=== PATIENT | male | born 1945 | race African-American/Black ===

== ENCOUNTER 2021-09-06 11:39 | Inpatient (IN) | payer OTHER ==
[~2021-09-06] VITALS: Ht 177.8 cm; Wt 93.4 kg
--- NOTE | ~2021-09-06 | EMS ---
[facility] [address] [place] [address] EMS Patient Care Report Name: CAREN JORDAN Room #: 356-P ADM IN M.R.#: [id number] Admission: 09/06/21 Attend Phys: Scooter Latif MD Discharge: Date of : 45 Report #: [id number] THIS REPORT FOR: //name// Report Transmitted: 09/10/2021 11:32 EMS Care Summary [place], [place]/[facility] Incident [id number] @ 09/06/2021 11:12 Incident Location [facility] ELPIDIO Orosco Patient CAREN A JULIAN Male, 76 Years 1945 Patient Address [address] [place], [place] [address] [address] [address] Patient History Angina,Hypertension (HTN),Kidney/Renal Failure,Coronary Artery Bypass Graft (CABG),Atrial Fibrillation,Neuropathy,Dialysis,Hyperkalemia, Patient Allergies No known allergies, Patient Medications Insulin, Famotidine, Amlodipine, Aspirin, DuoNeb, Gabapentin, Oxycodone, Melatonin, Miralax, Atorvastatin, Vitamin B12, Chief Complaint MALAISE Disposition Transported No Lights/[place] Dispatch Reason Sick Person Transported To [facility] Narrative M36 was dispatched for sick. Arrived on-scene to find 76 yo male patient [facility] [address] [place] [address] EMS Patient Care Report Name: CAREN JORDAN Room #: 356-P ADM IN M.R.#: [id number] Admission: 09/06/21 Attend Phys: Scooter Latif MD Discharge: Date of : 45 Report #: [id number] sitting in wheelchair at [facility]. Staff reported he had labs done this morning and showed critical low HBG @ 4.6 and missed dialysis. Patient's physician requested transport to [place] ED for eval and possible admission. Patient was COA x4 and in mild distress. Patient skin was pale and cool. Patient ABC's were intact. Patient was able to move all extremities with minor weakness noted. Patient was able to stand with assistance but unable to ambulate. Patient usually gets around in wheelchair. Patient complained of malaise, fatigue and general weakness. Patient denied headache, blurry vision, nausea, dizziness, syncope, jaw pain, neck pain, arm pain, chest pain, shortness of breath or abdominal pain. Patient report was obtained and assessment performed. Patient was assisted to stretcher and secured with all safety straps. Patient was loaded into ambulance and vitals assessed. Patient was transported routine. Patient was unloaded and taken to ED. Patient was moved from stretcher to bed via draw sheet method by EMS. Patient signed for transport. Patient's RN signed for receiving facility. Patient care and report turned over to RN. M36 returned to service. Initial Vitals @11:36P: 90,R: 18,BP: 104/60,Pain: 0/10,GCS: 15,SpO2: 95,Revised Trauma: 12, @11:29P: 78,R: 18,BP: 103/64,Pain: 0/10,GCS: 15,SpO2: 95,Revised Trauma: 12, Assessments @11:25MENTAL:Place Oriented,Time Oriented,Event Oriented,Person Oriented,SKIN:Pale,HEENT:Eyes: Left Pupil: 4-mm,Eyes: Right Pupil: 4-mm,Head/Face: No Abnormalities,Neck/Airway: No Abnormalities,LUNG SOUNDS:General: No Abnormalities,Left Upper: No Abnormalities,Right Upper: No Abnormalities,Left Lower: No Abnormalities,Right Lower: No Abnormalities,ABDOMEN:General: No Abnormalities,Left Upper: No Abnormalities,Right Upper: No Abnormalities,Left Lower: No Abnormalities,Right Lower: No Abnormalities,PELVIS//GI:No Abnormalities,EXTREMITIES:Left Arm: Other,Right Leg: Weakness,Left Leg: Other,Right Leg: Edema,Left Leg: Weakness,Left Leg: Edema,Right Leg: Other,Right Arm: No Abnormalities,PULSE:Radial: 2+ Normal,NEURO:Weakness Left-Sided,Weakness Right-Sided, Impression Malaise Procedures @11: ALS Assessment Response: UnchangedSucceeded @: Stretcher Response: Unchanged Timeline [facility] [address] [place] [address] EMS Patient Care Report Name: CAREN JORDAN Room #: 356-P [facility] IN M.R.#: [id number] Admission: 09/06/21 Attend Phys: Scooter Latif MD Discharge: Date of : 45 Report #: [id number] 11:10,Call Received 11:10,Dispatch Notified 11:12,Dispatched 11:13,En Route 11:23,On Scene 11:25,At Patient 11:25,ALS Assessment,Response: UnchangedSucceeded, 11:26,Stretcher,Response: Unchanged 11:29,BP: 103/64 M,PULSE: 78,RR: 18 R,SPO2: 95 Ox,ETCO2: ,BG: ,PAIN: 0,GCS: 15, 11:34,Depart Scene 11:35,At Destination 11:36,BP: 104/60 M,PULSE: 90,RR: 18 R,SPO2: 95 Ox,ETCO2: ,BG: ,PAIN: 0,GCS: 15, 11:48,Call Closed Disclaimer v1.1 Copyright 2021 [employer] This EMS Care Summary contains data elements from the applicable legal record (which may be displayed differently). It is designed to provide pertinent information for the following purposes: continuity of care, clinical quality, and state data reporting. The complete legal record is available to ED staff and administrators of the receiving hospital in [employer] Patient Tracker. All data is provided "as is."
--- NOTE | ~2021-09-06 | EMS ---
[facility] [address] [place] [address] EMS Patient Care Report Name: CAREN JORDAN Room #: 170-8 ADM IN M.R.#: [id number] Admission: 09/06/21 Attend Phys: Scooter Latif MD Discharge: Date of : 45 Report #: [id number] THIS REPORT FOR: //name// Report Transmitted: 09/07/2021 10:17 EMS Care Summary [place], [place]/[facility] Incident [id number] @ 09/06/2021 11:12 Incident Location [facility] ELPIDIO Orosco Patient CAREN A JULIAN Male, 76 Years 1945 Patient Address [address] [place], [place] [address] [address] [address] Patient History Angina,Hypertension (HTN),Kidney/Renal Failure,Coronary Artery Bypass Graft (CABG),Atrial Fibrillation,Neuropathy,Dialysis,Hyperkalemia, Patient Allergies No known allergies, Patient Medications Insulin, Famotidine, Amlodipine, Aspirin, DuoNeb, Gabapentin, Oxycodone, Melatonin, Miralax, Atorvastatin, Vitamin B12, Chief Complaint MALAISE Disposition Transported No Lights/[place] Dispatch Reason Sick Person Transported To [facility] Narrative M36 was dispatched for sick. Arrived on-scene to find 76 yo male patient [facility] [address] [place] [address] EMS Patient Care Report Name: CAREN JORDAN Room #: 170-8 ADM IN M.R.#: [id number] Admission: 09/06/21 Attend Phys: Scooter Latif MD Discharge: Date of : 45 Report #: [id number] sitting in wheelchair at [facility]. Staff reported he had labs done this morning and showed critical low HBG @ 4.6 and missed dialysis. Patient's physician requested transport to [place] ED for eval and possible admission. Patient was COA x4 and in mild distress. Patient skin was pale and cool. Patient ABC's were intact. Patient was able to move all extremities with minor weakness noted. Patient was able to stand with assistance but unable to ambulate. Patient usually gets around in wheelchair. Patient complained of malaise, fatigue and general weakness. Patient denied headache, blurry vision, nausea, dizziness, syncope, jaw pain, neck pain, arm pain, chest pain, shortness of breath or abdominal pain. Patient report was obtained and assessment performed. Patient was assisted to stretcher and secured with all safety straps. Patient was loaded into ambulance and vitals assessed. Patient was transported routine. Patient was unloaded and taken to ED. Patient was moved from stretcher to bed via draw sheet method by EMS. Patient signed for transport. Patient's RN signed for receiving facility. Patient care and report turned over to RN. M36 returned to service. Initial Vitals @11:36P: 90,R: 18,BP: 104/60,Pain: 0/10,GCS: 15,SpO2: 95,Revised Trauma: 12, @11:29P: 78,R: 18,BP: 103/64,Pain: 0/10,GCS: 15,SpO2: 95,Revised Trauma: 12, Assessments @11:25MENTAL:Person Oriented,Event Oriented,Time Oriented,Place Oriented,SKIN:Pale,HEENT:Eyes: Right Pupil: 4-mm,Eyes: Left Pupil: 4-mm,Head/Face: No Abnormalities,Neck/Airway: No Abnormalities,LUNG SOUNDS:General: No Abnormalities,Left Upper: No Abnormalities,Right Upper: No Abnormalities,Left Lower: No Abnormalities,Right Lower: No Abnormalities,ABDOMEN:General: No Abnormalities,Left Upper: No Abnormalities,Right Upper: No Abnormalities,Left Lower: No Abnormalities,Right Lower: No Abnormalities,PELVIS//GI:No Abnormalities,EXTREMITIES:Right Leg: Other,Left Leg: Edema,Left Leg: Weakness,Right Leg: Edema,Left Leg: Other,Right Leg: Weakness,Left Arm: Other,Right Arm: No Abnormalities,PULSE:Radial: 2+ Normal,NEURO:Weakness Right-Sided,Weakness Left-Sided, Impression Malaise Procedures @11: ALS Assessment Response: UnchangedSucceeded @: Stretcher Response: Unchanged Timeline 11:10,Call Received [address] [address] EMS Patient Care Report Name: CAREN JORDAN Room #: 170-8 ADM IN M.R.#: [id number] Admission: 09/06/21 Attend Phys: Scooter Latif MD Discharge: Date of : 45 Report #: [id number] 11:10,Dispatch Notified 11:12,Dispatched 11:13,En Route 11:23,On Scene 11:25,At Patient 11:25,ALS Assessment,Response: UnchangedSucceeded, 11:26,Stretcher,Response: Unchanged 11:29,BP: 103/64 M,PULSE: 78,RR: 18 R,SPO2: 95 Ox,ETCO2: ,BG: ,PAIN: 0,GCS: 15, 11:34,Depart Scene 11:35,At Destination 11:36,BP: 104/60 M,PULSE: 90,RR: 18 R,SPO2: 95 Ox,ETCO2: ,BG: ,PAIN: 0,GCS: 15, 11:48,Call Closed Disclaimer v1.1 Copyright 2021 [employer] This EMS Care Summary contains data elements from the applicable legal record (which may be displayed differently). It is designed to provide pertinent information for the following purposes: continuity of care, clinical quality, and state data reporting. The complete legal record is available to ED staff and administrators of the receiving hospital in [employer] Patient Tracker. All data is provided "as is."
[2021-09-06 11:47] VITALS: BP 113/47
[2021-09-06 12:34] LABS: ABSOLUTE NEUTROPHILS 4.5 thou/uL (1.4-8.2); EOSINOPHILS 4.3 % (0.0-3.0); LYMPHOCYTES 10.6 % (24.0-44.0); MCH 34.6 pg (26.0-34.0); MCHC 32.5 g/dL (28.0-37.0); MCV 106.5 fL (80.0-100.0); MONOCYTES 9.1 % (1.0-8.0); PLATELET COUNT 129 thou/uL (150-400); RBC 1.36 mil/uL (4.50-6.00); RDW 25.3 % (10.5-14.5)
[2021-09-06 12:36] LABS: HEMATOCRIT 14.5 % (42.0-52.0); HEMOGLOBIN 4.7 gm/dL (14.0-18.0)
[2021-09-06 12:40] LABS: ALBUMIN 2.3 g/dL (3.4-5.0); CALCIUM 8.7 mg/dL (8.5-10.1); CREATININE 8.2 mg/dL (0.7-1.3); TOTAL BILIRUBIN 0.4 mg/dL (0.2-1.0); TOTAL PROTEIN 5.7 g/dL (6.4-8.2)
[2021-09-06 13:21] LABS: ANISOCYTOSIS 1+; MACROCYTES 1+
[2021-09-06 13:44] VITALS: BP 109/49; BP 118/64; BP 119/59; BP 124/49
[2021-09-06] MEDS ORDERED: OXYCODONE HCL 55 MG PO (16:18)
[2021-09-06] MEDS ORDERED: GABAPENTIN 100100 MG PO (16:18)
[2021-09-06] MEDS ORDERED: LIPITOR 40 MG T40 M1 PO (16:18)
[2021-09-06 16:27] VITALS: BP 127/53; BP 132/54; BP 143/52; BP 144/80; BP 145/78
[2021-09-06 16:43] LABS: % SATURATION 37 % (20-39); IRON 86 ug/dL (65-175); TIBC 234 ug/dL (250-450)
[2021-09-06] MEDS ORDERED: CALCIUM ACETAT667 MG PO (17:58)
[2021-09-06] MEDS ORDERED: NORVASC5 MG PO (17:58)
[2021-09-06] MEDS ORDERED: ASA81BEC PO (18:00)
[2021-09-06] MEDS ORDERED: FAMOTIDINE 20 M20 MG PO (18:00)
[2021-09-06] MEDS ORDERED: APIDRA SUBQ (18:01)
[2021-09-06] MEDS ORDERED: MELATONIN3 M2 PO (18:02)
[2021-09-06] MEDS ORDERED: OXYCODONE HCL5 MG PO (18:02)
[2021-09-06] MEDS ORDERED: LANTUSSOLASTAR SUBQ (18:02)
[2021-09-07 07:09] LABS: HEP B SURFACE Ab(ANTI-HBS Reactive (()); HEPATITIS B SURFACE AG Negative (Negative)
[2021-09-07 08:07] LABS: HEMATOCRIT 21.5 % (42.0-52.0); HEMOGLOBIN 7.1 gm/dL (14.0-18.0); MCH 32.2 pg (26.0-34.0); MCHC 32.8 g/dL (28.0-37.0); RBC 2.19 mil/uL (4.50-6.00); RDW 23.7 % (10.5-14.5); WBC 4.8 thou/uL (4.0-11.0)
[2021-09-07 08:08] LABS: GLYCOHEMOGLOBIN (HGB A1C) 6.1 % (4.8-5.6)
[2021-09-07 08:16] LABS: MCV 98.1 fL (80.0-100.0)
[2021-09-07 08:19] LABS: CALCIUM 8.8 mg/dL (8.5-10.1)
[2021-09-07 08:21] LABS: CREATININE 4.9 mg/dL (0.7-1.3); POTASSIUM 4.3 mmol/L (3.5-5.1)
[2021-09-07 08:26] LABS: ALBUMIN 2.2 g/dL (3.4-5.0); TOTAL BILIRUBIN 0.7 mg/dL (0.2-1.0); TOTAL PROTEIN 5.4 g/dL (6.4-8.2)
[2021-09-07 13:40] VITALS: BP 117/57
[2021-09-07 16:07] VITALS: BP 138/56
--- NOTE | 2021-09-07 17:53 | NUR ---
ADMISSION NOTE: PT ADMITTED TO ROOM 356, ALERT AND ORIENTED X4, FORGETFUL AT TIMES. ON ROOM AIR, NO SIGNS OF DISTRESS NOTED. COMPLAINS OF PAIN OF THE BILATERAL LOWER EXTREMITY FROM SCATTERED BLISTERS AND WOUND ON BOTH LEGS. PT HAD A BYPASS SURGERY COUPLE WEEKS AGO AND THEY WENT THROUGH THE LEFT LEG. PT HAS EFE ON HIS LEFT LEFT LEG FROM THE SURGERY. WOUND CARE COMPLETED AND DRESSING CHANGE DONE. ASSESSMENT AND ADMISSION COMEPLETED. CONSENTS SIGNED BY PT. IS ANURIC DUE TO ESRD. ORIENTED TO THE ROOM. FALL PRECAUTIONS IN PLACE. SON AND DTR HERE AND UPDATED ABOUT PT CARE.
[2021-09-07 18:50] VITALS: BP 138/59
[2021-09-08 03:21] VITALS: BP 148/52
[2021-09-08 05:14] LABS: HEMATOCRIT 20.7 % (42.0-52.0); MCH 33.2 pg (26.0-34.0); MCV 97.8 fL (80.0-100.0); RBC 2.11 mil/uL (4.50-6.00); RDW 23.4 % (10.5-14.5); WBC 4.8 thou/uL (4.0-11.0)
--- NOTE | 2021-09-08 05:20 | NUR ---
UP TO THE RESTROOM TONIGHT. HE HAD A BM, COMPLAINED THAT HE HAS HAD DIARRHEA FOR THE PAST MONTH. SENT A CDIFF SAMPLE THIS SHIFT. HE IS ABLE TO AMBULATE WITH ONE PERSON ASSIST, WITH WALKER AND GAIT BELT.
[2021-09-08 05:56] LABS: CALCIUM 7.9 mg/dL (8.5-10.1); POTASSIUM 4.3 mmol/L (3.5-5.1)
[2021-09-08 06:02] LABS: CREATININE 6.4 mg/dL (0.7-1.3)
[2021-09-08 07:49] VITALS: BP 144/48
--- NOTE | 2021-09-08 10:23 | NUR ---
Patient positive for Covid on 08/14/21 at [facility] per Malika at [facility]. ([facility]) Isolation no longer indicated.
--- NOTE | 2021-09-08 11:14 | NUR ---
RD consult received. Admit with GIB, hyperkalemia. Hx: ESRD with dialysis, DM, PAD, CABG. Recent femoral/pop bypass, toe amputation. Left foot infection. Transfusion with hgb up to 7. S/P EGD-diffuse gastritis, possib need colonoscopy. Eating 100% of meals, A1C 6.4-good BG control. K+ was 7, now wnl. Will add renal to diet order. No wt loss reported. Presents low nutrition risk
[2021-09-08 11:30] VITALS: BP 151/63
[2021-09-08 11:32] LABS: HEMOGLOBIN 7.1 gm/dL (14.0-18.0); MCH 34.9 pg (26.0-34.0); MCHC 35.9 g/dL (28.0-37.0); MCV 97.3 fL (80.0-100.0); RBC 2.04 mil/uL (4.50-6.00); RDW 22.9 % (10.5-14.5); WBC 4.2 thou/uL (4.0-11.0)
[2021-09-08 11:35] LABS: HEMATOCRIT 19.8 % (42.0-52.0)
--- NOTE | 2021-09-08 11:55 | NUR ---
INITIAL ASSESSMENT: Received consult. TOMMY reviewed chart and spoke with nursing and attending physician. Pt was admitted from [facility] due to GI bleed. Pt's hemoglobin was 4.7 upon arrival to the ER. Pt had two units of PRBC. EGD completed. Pt to have a colonoscopy. Pt with hx of ESRD, DM, PVD and A-fib. Pt with recent toe amputation. Per chart, pt tested positive for COVID on 08/14/2021 at [facility] [place]. Pt is no longer in isolation. TOMMY met with pt at bedside. Introduced role of SW. Pt is alert/orientated. Pt states he has been at [facility] for rehab and plan is to return. TOMMY offered to contact pt's family to provide update. Pt agreeable. TOMMY placed call to pt's dtr, Florinda ([phone]). No voice message left, as this number is for someone named Amanda. TOMMY left voice message for pt's son, Klaus ([phone]). TOMMY faxed updated clinical info to [facility] for review. Confirmed info was received with Ayse. [facility] is able to accept pt back when medically stable. Awaiting therapy evals at this time. TOMMY is following to assist as needed with discharge planning.
--- NOTE | 2021-09-08 15:02 | NUR ---
CARE ASSUMED THIS AM, PT ALERT AND ORIENTED X4, FORGETFUL AT TIMES. ON ROOM AIR, NO SIGNS OF DISTRESS. UP TO BSC WITH 1 ASSIST. GETTING DIALYSIS TODAY. PT IS CURRENTLY ON CLEAR LIQUID DIET TO PREP BOWEL FOR COLONOSCOPY TOMORROW. WOUND CARE DONE BY DR. CLANCY. FALL PRECAUTIONS IN PLACE. WILL CONTINUE TO MONITOR.
--- NOTE | 2021-09-08 15:08 | PATH ---
[facility] [address] [address] PATHOLOGY RPT PROCEDURE Name: OSVALDO JORDAN Room #: 356-P ADM IN M.R.#: [id number] Admission: 09/06/21 Date of : 45 Discharge: Report #: [id number] Path Case #: [id number] [facility] Accession Number: [id number] . 01 Material submitted: . PART A: stomach - ANTRAL LESION- R/O PANCREATIC REST PART B: gastrointestinal site - GASTRITIS- R/O H. PYLORI . 01 Clinical history: . ESOPHAGOGASTRODUODENOSCOPY GI BLEED, GASTRITIS, DUODENITIS . 02 Diagnosis: A. Antral lesion: - Mild acute and chronic antral gastritis including polypoid foveolar hyperplasia typical of reactive gastropathy (chemical gastritis), negative for Helicobacter pylori organisms, granulomas, pancreatic rest tissues and dysplasia. . B. 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 . (ANDREA:mml; 09/08/2021) QL 09/08/2021 1214 Local . 02 Comment: Special stains on A and B: H. pylori immunos . (ANDREA:mml; 09/08/2021) . 02 Electronically signed: . Waqar Tsang MD, Pathologist NPI- [id number] . 01 Gross description: . A. The specimen is received in formalin, labeled "Osvaldo Jordan, antral lesion-rule out pancreatic rest". Received is a single segment of white-cabral tissue measuring 0.3 cm in maximum dimensions. The specimen is entirely submitted in cassette A1. . B. The specimen is received in formalin, labeled "Osvaldo Jordan, gastritis-rule out H. pylori". Received are 3 segments of pale cabral tissue ranging in size from 0.2-0.5 cm in maximum dimension. The specimen is entirely submitted in cassette B1. ([facility]; 09/07/2021) [place] [address] PATHOLOGY RPT PROCEDURE Name: OSVALDO JORDAN Room #: 356-P [facility] IN M.R.#: [id number] Admission: 09/06/21 Date of : 45 Discharge: Report #: [id number] Path Case #: [id number] NRI/NRI 09/07/2021 1702 Local . 02 Pathologist provided ICD-10: K29.50, K92.2, K29.80 . 02 CPT . 884640, 811513, Z81091 Specimen Comment: A courtesy copy of this report has been sent to [phone] Specimen Comment: Report sent to Performed at: [address], [place] [address] MD Phil Murphy MD Phone: [phone] Performed at: 02 [facility] [address], [place], [place] [address] MD Waqar Tsang MD Phone: [phone]
--- NOTE | 2021-09-08 15:33 | P ---
[facility] [place] [address] PROCEDURE REPORT Name: CAREN JORDAN Room #: 356-P ADM IN M.R.#: [id number] Admission: 09/06/21 Attend Phys: Scooter Latif MD Discharge: Date of : 45 Report #: [id number] THIS REPORT FOR: cc: Jorge Luis Bolaños MD, Christopher B. MD McElhinney, Christian C. MD ~ cc: Alejandra Leiva APRN, Dr. DATE OF SERVICE: 09/07/2021 PROCEDURE PERFORMED: Upper endoscopy with biopsies. HISTORY OF PRESENT ILLNESS: The patient is a 76-year-old male who was admitted with severe anemia from nursing facility, approximately 1 month ago had a vascular bypass surgery on his left lower extremity. He had been having dark stools for approximately 1 week, was transfused at a different hospital last month. The patient has been on aspirin and Plavix. Plavix was held recently. Last colonoscopy reportedly done over 5 years ago. I do not have a copy of this report. His hemoglobin on admission to [facility] was 4.7. He was transfused 2 units of packed cells yesterday. Hemoglobin today is 7.1. Plan is for upper endoscopy. DESCRIPTION OF PROCEDURE: The risks and benefits of the procedure were explained to the patient and his son. Those risks including but not limited to bleeding, perforation and the risk of sedation. They understood these risks and gave informed consent. Sedation was given using propofol per anesthesia. Next, using a standard Olympus upper endoscope, the scope was placed in the patient's mouth and advanced under direct vision through the esophagus, stomach and into the second portion of the duodenum. The larynx was normal in appearance. The esophagus was normal throughout. GE junction was normal. There was a diffuse gastritis noted in the gastric fundus and body. No evidence of bleeding. Biopsies were obtained to rule out H. pylori. In the gastric antrum, a possible pancreatic rest was noted. This was approximately 1 cm in size. No evidence of bleeding. Biopsies were obtained. The pylorus was normal and patent. In the duodenal bulb, mild duodenitis with a few small erosions were noted. No evidence of bleeding. The first and second portion of the duodenum were all normal. There was no evidence of blood throughout the exam today. The scope was then withdrawn and the procedure terminated. The patient tolerated the procedure well. IMPRESSION: 1. Diffuse gastritis. 2. Possible pancreatic rest in the gastric antrum. 3. Duodenitis with small erosions. 4. No evidence of bleeding throughout the exam today. [address] [address] PROCEDURE REPORT Name: CAREN JORDAN Room #: 356-P [facility] IN .R.#: [id number] Admission: 09/06/21 Attend Phys: Scooter Latif MD Discharge: Date of : 45 Report #: [id number] RECOMMENDATIONS: 1. Await biopsy results. 2. Continue PPI therapy. 3. Continue to hold anticoagulation therapy. 4. We will discuss with the patient and his son about potentially proceeding with a colonoscopy next for further evaluation. Thank you for allowing me to participate in his care. <ELECTRONICALLY SIGNED> By: Domo Reyna MD 09/08/21 1533 1205 09 Domo Reyna MD /nt
[2021-09-08 16:00] VITALS: BP 149/74
[2021-09-08 20:03] VITALS: BP 145/66
--- NOTE | 2021-09-08 21:35 | NUR ---
pt has finished his golytley colon prep. he has had one BM so far. bed alarm set, pt has been instructed to call for assist.
[2021-09-09 02:42] VITALS: BP 138/52
--- NOTE | 2021-09-09 02:46 | NUR ---
large amounts of stools tonight. he has been npo since midnoc. he had an ultrasound of his legs tonight. dressings on legs changed after the exam. no dischareg concerns voiced.
[2021-09-09 05:21] LABS: HEMATOCRIT 20.9 % (42.0-52.0); HEMOGLOBIN 7.1 gm/dL (14.0-18.0); MCH 33.3 pg (26.0-34.0); MCHC 33.8 g/dL (28.0-37.0); MCV 98.5 fL (80.0-100.0); RBC 2.13 mil/uL (4.50-6.00); RDW 23.8 % (10.5-14.5); WBC 4.2 thou/uL (4.0-11.0)
[2021-09-09 08:31] VITALS: BP 127/58
[2021-09-09 11:12] VITALS: BP 127/68
[2021-09-09 12:25] LABS: HEMATOCRIT 22.8 % (42.0-52.0); HEMOGLOBIN 7.4 gm/dL (14.0-18.0); MCH 32.5 pg (26.0-34.0); MCHC 32.5 g/dL (28.0-37.0); RBC 2.28 mil/uL (4.50-6.00); RDW 24.7 % (10.5-14.5); WBC 4.5 thou/uL (4.0-11.0)
--- NOTE | 2021-09-09 12:55 | NUR ---
WOUND CARE COMPLETED. ENAMA GIVEN PER GI ORDER. PT TAKEN DOWN FOR COLONOSCY NOW.
[2021-09-09 14:05] VITALS: BP 118/47
--- NOTE | 2021-09-09 15:34 | NUR ---
PER TOMMY, MAGDA SW spoke with nursing and attending physician. Pt is progressing towards goals for discharge. Pt to have colonoscopy today. Pt may be ready for discharge back to [facility] in 1-2 days. SW updated Ayse in admissions at [facility]. Confirmed that [facility] is able to accept pt back when medically stable. SW notified by nursing that pt's son, Osvaldo ([phone]) was wanting to discuss alternate placement. SW left voice message for Osvaldo. SW is following to assist as needed with discharge planning. NAWAF Benitez
[2021-09-09 16:08] VITALS: BP 130/59
[2021-09-09 21:36] VITALS: BP 132/50
[2021-09-10 04:53] VITALS: BP 122/40
[2021-09-10 05:19] LABS: HEMATOCRIT 22.3 % (42.0-52.0); HEMOGLOBIN 7.3 gm/dL (14.0-18.0); MCH 33.2 pg (26.0-34.0); MCHC 32.9 g/dL (28.0-37.0); RBC 2.2 mil/uL (4.50-6.00); RDW 24.1 % (10.5-14.5); WBC 4.3 thou/uL (4.0-11.0)
[2021-09-10 06:00] LABS: ALBUMIN 2.1 g/dL (3.4-5.0); CALCIUM 8.3 mg/dL (8.5-10.1); CREATININE 5.9 mg/dL (0.7-1.3); MAGNESIUM 2.2 mg/dL (1.8-2.4); POTASSIUM 4.5 mmol/L (3.5-5.1); TOTAL BILIRUBIN 0.6 mg/dL (0.2-1.0); TOTAL PROTEIN 5.7 g/dL (6.4-8.2)
--- NOTE | 2021-09-10 06:30 | NUR ---
ASSUMED PT CARE AT 1900. PT IS ALERT & ORIENTED X 4. NO S/S OF DISTRESS. PT SLEPT ON RECLINER THIS SHIFT PER REQUEST. CURRENTLY PT IS RESTING COMFORTABLY. VSS AFEBRILE. PT IS ABLE TO MAKE NEEDS KNOWN AND EXPRESSES NO OTHER NEEDS AT THIS TIME, CHAIR ALARM ON, AND CALL LIGHT WITHIN REACH.
[2021-09-10 11:40] VITALS: BP 116/49
--- NOTE | 2021-09-10 12:11 | NUR ---
TOMMY reviewed chart and spoke with nursing and attending physician. Pt is s/p colonoscopy. Cardiology and IR consulted. Pt to have dialysis today. TOMMY spoke with pt's son, Osvaldo, via phone to provide update and discuss discharge plan. Osvaldo requests referral to be sent to [facility] for review, if they have onsite dialysis. Pt may be possibly ready for discharge over the weekend. Osvaldo is aware and agreeable. TOMMY faxed referral to [facility] and spoke with Virgie in admissions. Pt's info to be reviewed. Kathy is T-R-S at [facility]. Pt's current schedule is -W-. Awaiting input from [facility] at this time. TOMMY is following to assist as needed with discharge planning.
--- NOTE | 2021-09-10 15:03 | P ---
[facility] [place] [address] PROCEDURE REPORT Name: CAREN JORDAN Room #: 356-P ADM IN M.R.#: [id number] Admission: 09/06/21 Attend Phys: Scooter Latif MD Discharge: Date of : 45 Report #: [id number] THIS REPORT FOR: cc: Jorge Luis Bolaños MD, Christopher B. MD McElhinney, Christian C. MD ~ cc: Jose Milian MD, Katherine Goyal MD DATE OF SERVICE: 09/09/2021 PROCEDURE PERFORMED: Colonoscopy. HISTORY OF PRESENT ILLNESS: The patient is a 76-year-old male with multiple medical problems, on hemodialysis, history of chronic anemia; however, hemoglobin on admission was 4.7. Reportedly, had a colonoscopy over 5 years ago. I performed an upper endoscopy on the patient on 09/07/2021, which showed diffuse gastritis, but no evidence of bleeding. Mild duodenitis and erosions were noted. No evidence of bleeding in the duodenum. The esophagus was normal. The patient received 2 units of packed cells. His hemoglobin has been in the 7 range since that time. Plan is for colonoscopy. Stool was Hemoccult positive on the 09/06. DESCRIPTION OF PROCEDURE: The risks and benefits of the procedure were explained to the patient and his son. Those risks including but not limited to bleeding, perforation and the risk of sedation. They understood these risks and gave informed consent. Sedation was given using propofol per anesthesia. Next, a digital rectal exam was initially performed, which was normal. Next, using a standard Olympus colonoscope, the scope was placed in the patient's anus and advanced under direct vision to the cecum. The overall prep was fair in areas. Multiple washings and aspirations were performed. I was able to visualize most areas; however, small lesions could be missed. The cecum and ileocecal valve were normal in appearance. The ascending, transverse, descending and sigmoid colon were normal. The rectal mucosa was normal. On retroflexion, small nonbleeding internal hemorrhoids were noted. There was no evidence of blood throughout the exam today. The scope was then withdrawn and the procedure terminated. The patient tolerated the procedure well. IMPRESSION: 1. Internal hemorrhoids, nonbleeding. 2. Otherwise, normal colonoscopy. RECOMMENDATIONS: Continue PPI therapy and monitoring hemoglobin at this point. If there is a drop in hemoglobin in the future, consider M2 capsule endoscopy for further evaluation. [address] [address] PROCEDURE REPORT Name: CAREN JORDAN Room #: 356-P [facility] IN .R.#: [id number] Admission: 09/06/21 Attend Phys: Scooter Latif MD Discharge: Date of : 45 Report #: [id number] Thank you for allowing me to participate in his care. <ELECTRONICALLY SIGNED> By: Domo Reyna MD 09/10/21 1503 1234 1930 Domo Reyna, /dirk
[2021-09-10 16:00] VITALS: BP 120/57
[2021-09-10 20:02] VITALS: BP 149/63
[2021-09-11 03:34] VITALS: BP 139/64
[2021-09-11 04:41] LABS: HEMATOCRIT 20.9 % (42.0-52.0); RBC 2.09 mil/uL (4.50-6.00); WBC 4.4 thou/uL (4.0-11.0)
[2021-09-11 04:43] LABS: HEMOGLOBIN 6.8 gm/dL (14.0-18.0); MCH 32.7 pg (26.0-34.0); MCHC 32.7 g/dL (28.0-37.0); RDW 23.6 % (10.5-14.5)
[2021-09-11 05:05] LABS: ALBUMIN 1.9 g/dL (3.4-5.0); CALCIUM 8.3 mg/dL (8.5-10.1); MAGNESIUM 1.9 mg/dL (1.8-2.4); POTASSIUM 4.1 mmol/L (3.5-5.1); TOTAL BILIRUBIN 0.4 mg/dL (0.2-1.0); TOTAL PROTEIN 5.6 g/dL (6.4-8.2)
[2021-09-11 05:10] LABS: CREATININE 4.3 mg/dL (0.7-1.3)
--- NOTE | 2021-09-11 05:54 | NUR ---
ASSUMED PT CARE AT 1900. PT WAS RECEIVING DIALYSIS UNTIL APPROX 1999. VSS AFEBRILE. NO C/O OF PAIN, NAUSEA/VOMITTING. BLE LEG WOUND DRESSING C/D/I. CURRENTLY, PT IS SITTING UP IN RECLINER AND RESTING COMFORTABLY. PT IS ABLE TO MAKE NEEDS KNOWN AND EXPRESSES NO OTHER NEEDS AT THIS TIME. CONTINUE WITH PLAN OF CARE.
[2021-09-11 07:52] VITALS: BP 125/57
[2021-09-11 09:39] LABS: HEMOGLOBIN 6.7 gm/dL (14.0-18.0); MCHC 32.7 g/dL (28.0-37.0); RDW 23.6 % (10.5-14.5); WBC 4.2 thou/uL (4.0-11.0)
[2021-09-11 09:40] LABS: HEMATOCRIT 20.6 % (42.0-52.0); MCH 32.6 pg (26.0-34.0); MCV 99.8 fL (80.0-100.0); RBC 2.06 mil/uL (4.50-6.00)
[2021-09-11 11:31] VITALS: BP 98/56
[2021-09-11 14:30] VITALS: BP 112/67; BP 122/64; BP 124/53; BP 127/53
--- NOTE | 2021-09-11 18:37 | NUR ---
PT A&OX4, VSS, RECIEVED 1 UNIT PRBC TODAY WITH NO ADVERSE REACTION NOTED. MEDICAL POWER OF FITNESS SERVICES MANAGER PAPERWORK COMPLETED WITH PLACEMENT DIRECTORDEVYN HALLMAN, SON CAREN WILLIAMSON NAMED WITH DAUGHTER FLAVIO SECONDARY. CAREN WILLIAMSON REQUESTS TO BE INCLUDED IN ALL PLANS OF CARE.
[2021-09-11 20:44] VITALS: BP 126/42
[2021-09-12] VITALS (7 sets, daily range): BP systolic 96–123; BP diastolic 41–76
[2021-09-12 03:41] LABS: HEMATOCRIT 23.5 % (42.0-52.0); HEMOGLOBIN 7.8 gm/dL (14.0-18.0); MCH 32.3 pg (26.0-34.0); MCHC 33.1 g/dL (28.0-37.0); MCV 97.6 fL (80.0-100.0); RBC 2.41 mil/uL (4.50-6.00); RDW 23.9 % (10.5-14.5); WBC 4.7 thou/uL (4.0-11.0)
[2021-09-12 03:51] LABS: CALCIUM 8.2 mg/dL (8.5-10.1); POTASSIUM 4.6 mmol/L (3.5-5.1); TOTAL BILIRUBIN 0.4 mg/dL (0.2-1.0)
[2021-09-12 03:52] LABS: CREATININE 5.9 mg/dL (0.7-1.3)
--- NOTE | 2021-09-12 06:26 | NUR ---
CARE ASSUMED AT 1900. PT IS ALERT & ORIENTED X 4. PT IS EASILY FRUSTRATED. PT HAD A BM THIS SHIFT. VSS AFEBRILE. PT IS SITTING UP ON RECLINER AND RESTING COMFORTABLY. PT IS ABLE TO MAKE NEEDS KNOWN. CONTINUE WITH PLAN OF CARE.
--- NOTE | 2021-09-12 18:14 | NUR ---
PT A/O X 3. PT EXTREMELY IRRITABLE AND FREQUENTLY STATES TO THIS RN "I JUST WANT TO BE LEFT ALONE". PT INCONTINENT OCCASIONALLY, AND THIS RN FOUND PRESSURE WOUNDS ON BUTTOCKS X 3, Z GUARD IN PLACE. DRESSING CHANGE COMPLETED THIS SHIFT. PER NIGHTSHIFT REPORT, PT REFUSED DRESSING CHANGE EARLY THIS AM AFTER PT HAD SPILLED MILK ON DRESSING. PT X 2 ASSIST, VERY UNSTEADY ON FEET. NO CURRENT NEEDS, WILL CONTINUE TO MONITOR.
[2021-09-13 03:00] VITALS: BP 135/39
[2021-09-13 04:46] LABS: CALCIUM 8.7 mg/dL (8.5-10.1); MAGNESIUM 1.9 mg/dL (1.8-2.4); POTASSIUM 4.9 mmol/L (3.5-5.1); TOTAL BILIRUBIN 0.4 mg/dL (0.2-1.0); TOTAL PROTEIN 5.9 g/dL (6.4-8.2)
[2021-09-13 04:50] LABS: CREATININE 7.1 mg/dL (0.7-1.3)
--- NOTE | 2021-09-13 05:06 | NUR ---
PT REQUIRING TWO PEOPLE TO GO FROM CHAIR TO STANDING WITH A WALKER. ONLY ABLE TO STAND FOR APPROXIMATELY 30-60 SECONDS. DID NOT REPORT ANY PAIN WITH STANDING BRIEFLY.
[2021-09-13 07:59] VITALS: BP 132/68
[2021-09-13 08:16] LABS: HEMATOCRIT 24.2 % (42.0-52.0); HEMOGLOBIN 7.7 gm/dL (14.0-18.0); MCH 31.4 pg (26.0-34.0); MCV 98.4 fL (80.0-100.0); RBC 2.46 mil/uL (4.50-6.00); RDW 23.3 % (10.5-14.5); WBC 5.7 thou/uL (4.0-11.0)
--- NOTE | 2021-09-13 11:15 | HC ---
[facility] [place] [address] CONSULTATION Name: CAREN JORDAN Room #: 356-P ADM IN M.R.#: [id number] Admission: 09/06/21 Attend Phys: Scooter Latif MD Discharge: Date of : 45 Report #: [id number] THIS REPORT FOR: cc: Jorge Luis Bolaños MD, Christopher B. MD Althoff, Jeffrey R. MD ~ DATE OF SERVICE: 09/08/2021 CHIEF COMPLAINT: Vascular ulcers, bilateral lower extremities. HISTORY OF PRESENT ILLNESS: This is a 76-year-old male patient with a history of diabetes mellitus and peripheral vascular disease. He is status post a fem-pop bypass on his left leg and a partial amputation of his left second toe approximately 2 weeks ago at [facility]. The patient cannot provide a lot of information about that but has had some ongoing issues with ulcers. He states he has developed increasing swelling in his legs and feet, has pain and swelling of his right ankle, an ulceration on the dorsal aspects of both feet. He feels that his surgical site has been healing well. PAST MEDICAL HISTORY: Positive for history of end-stage renal disease requiring hemodialysis, peripheral vascular disease, status post fem-pop bypass, history of diabetes, hypertension, history of DVT as well as coronary artery disease. SOCIAL HISTORY: The patient is a prior smoker. No alcohol use. FAMILY HISTORY: Noncontributory. MEDICATIONS: Include calcium acetate, amlodipine, atorvastatin, Neurontin, OxyIR, aspirin, famotidine, Lantus, melatonin, oxycodone. ALLERGIES: SHELLFISH. REVIEW OF SYSTEMS: CONSTITUTIONAL: The patient denies fever, chills or weight loss. NEUROLOGICAL: The patient denies focal weakness, numbness or tingling. EYES: The patient denies visual changes, redness or drainage. ENT: The patient denies earache, nasal drainage, sore throat. CARDIOVASCULAR: The patient denies chest pain, palpitations, diaphoresis. PULMONARY: The patient denies cough or shortness of breath. GASTROINTESTINAL: The patient denies nausea or abdominal pain. ORTHOPEDIC: The patient does have some pain, swelling of the lower extremities. Others systems in a 14-point systems are negative. PHYSICAL EXAMINATION: VITAL SIGNS: At this time include temperature 37.4, pulse 79, respiration of [address] [address] CONSULTATION Name: CAREN JORDAN Room #: 356-[facility] IN M.R.#: [id number] Admission: 09/06/21 Attend Phys: Scooter Latif MD Discharge: Date of : 45 Report #: [id number], blood pressure 151/63. GENERAL: This is a chronically ill-appearing male patient who appears to be in minimal distress. HEENT: Head is normocephalic. Nose and throat clear. NECK: Supple. LUNGS: Diminished. HEART: Regular rhythm. ABDOMEN: Soft, nontender. EXTREMITIES: Lower extremities demonstrate surgical incision with marilu in place involving the medial aspect of the left thigh and knee region. The incision is well intact but no evidence of infection. There is ulceration on the dorsal aspect of the left foot as well as the dorsal aspect of the right foot and there is some dry eschar involving the remainder of the left second toe, it does not appear to be overtly infected. There is some tenderness and swelling to the right lateral ankle area without obvious fluctuance. NEUROLOGIC: The patient is alert and oriented. LABORATORY DATA: Sodium 138, potassium 4.3, chloride 100, CO2 of 25, BUN 71, creatinine 6.4, glucose 183. White blood cell count 4.8 with a hemoglobin of 7.0. CLINICAL IMPRESSION: 1. Vascular ulcers, both feet as detailed above. 2. Anemia. 3. End-stage renal disease requiring hemodialysis. 4. Peripheral vascular disease, status post fem-pop bypass performed at [facility] 2 weeks ago. 5. Partial amputation of left second toe. 6. Hypertension. 7. Coronary artery disease, status post coronary artery bypass graft surgery. 8. History of moderate protein-calorie malnutrition. RECOMMENDATIONS: At this point in time, recommend topical gentamicin ointment, Xeroform and ABD and Kerlix to both feet. Recommend elevation for edema control. Did not wish to do compression as he is so close to his vascular bypass. He will need aggressive nutritional support, continue medical management. We will check Dopplers to evaluate blood flow on the right side as well as x-rays of both feet. I appreciate being asked to see him in consultation. <ELECTRONICALLY SIGNED> By: Jon Sharma MD 09/13/21 1115 1413 Jon Sharma MD /nt
--- NOTE | 2021-09-13 15:19 | NUR ---
ASSUMED CARE OF PT AT 0700. PT HAS BEEN WITHOUT DISTRESS. PATIENT WENT DOWN FOR ANGIOGRAPHY AT 1500. DIALISIS MAY BE POSTPONED UNTIL TOMORROW.
--- NOTE | 2021-09-13 16:11 | NUR ---
TOMMY reviewed chart and spoke with nursing and attending physician. Pt to have arteriogram this afternoon. Anticipate pt may be ready for discharge to [facility] in 1-2 days. TOMMY faxed updated clinical info and dialysis info to [facility] for review. Spoke with Virgie in admissions to provide update. Will need additional dialysis flow sheet tomorrow. Pt has not had dialysis yet today. Pt currently off the unit having procedure. TOMMY is following to assist as needed with discharge planning.
--- NOTE | 2021-09-13 17:37 | NUR ---
PT TAKEN BACK TO RM 356. MET IN ROOM BY SUMMER CHILEL AND AN ORIENTEE. GETACHEW STATED HE UNDERSTANDS HOW TO DO GROIN CHECKS AND WATCHING FOR HEMATOMA. GROIN CHECK DONE WITH GETACHEW AT THIS TIME, LT GROIN SOFT, DRESSING C/D/I. WENT OVER TIME SCHEDULE FOR CHECKS WITH GETACHEW, HE STATED UNDERSTANDING.
[2021-09-13 17:41] VITALS: BP 111/54
--- NOTE | 2021-09-13 18:11 | NUR ---
ASSUMED CARE OF PT AT 0700. NPO AFTER BREAKFAST FOR PROCEDURE IN IR. UNABLE TO PROCEED WITH ANY INTERVENTIONS PER IR. L GROIN SITE C/D/I. SITE CHECKS EVERY 4 HOURS - NO SIGNS OF HEMATOMA. SEDATED AT THIS TIME. BEDREST X 4 HOURS UNTIL 2100. VITALS STABLE. 98% SPO2 ON ROOM AIR. DRESSINGS CHANGED PER ORDER. WCM.
--- NOTE | 2021-09-13 18:13 | NUR ---
DIALYSIS TO BE PUSHED TO TOMORROW DUE TO [facility] PROCEDURE, PER DIALYSIS NURSE.
[2021-09-13 19:25] VITALS: BP 118/68
[2021-09-14 02:44] VITALS: BP 139/56
[2021-09-14 03:29] LABS: HEMATOCRIT 24.1 % (42.0-52.0); HEMOGLOBIN 7.8 gm/dL (14.0-18.0); MCH 31.5 pg (26.0-34.0); MCHC 32.5 g/dL (28.0-37.0); RBC 2.48 mil/uL (4.50-6.00); WBC 5.2 thou/uL (4.0-11.0)
--- NOTE | 2021-09-14 04:00 | NUR ---
PT MAKING POOR PROGRESS TOWARDS GOALS. REQUIRES ONE PERSON JAYDON TO TURN OVER IN BED. WILL ASSIST BY HOLDING ON THE BEDSIDE RAILING. ENCOURAGED TO TURN IN BED FOR PRESSURE RELIEF OFF HIS BUTTOCKS BUT PT REFUSED.
[2021-09-14] MEDS ORDERED: PROTONIX40 M2 PO (15:08)
--- NOTE | 2021-09-14 16:43 | NUR ---
DC to SNF at [facility] on hold until tomorrow as their onsite dialysis clinic needs to approve him. Flowsheets and dialysis orders faxed along with the SNF dc orders. The attending, unit RN/pt and son Osvaldo have been updated. Chart copy is ready for dc tomorrow. Virgie in admissions to confirm acceptance in the am and arrange for a w/c van transport.
[2021-09-14 17:03] VITALS: BP 145/66
--- NOTE | 2021-09-14 19:11 | NUR ---
RN ASSUMED PT'S CARE AT 0700-1900PM, PT IS A&OX2 ( PERSON AND PLACE), PT IS CONFUSED AT TIME, PT CAN FOLLOW COMMANDS, PT HAS DIALSIS TODAY, REMOVED 2L FLUID, PT'S VS ARE STABLE, WOUND TEAM HAVE SEEING THIS PT, BLE AND BUTTOCK WOUND CARE HAS DONE, PT DENIES PIAN AND SOB AT DAY SHIFT, PT WILL DC TO SNF TOMORROW.
[2021-09-14 19:46] VITALS: BP 150/59
[2021-09-15 03:46] VITALS: BP 137/50
[2021-09-15 04:44] LABS: HEMATOCRIT 22.7 % (42.0-52.0); HEMOGLOBIN 7.5 gm/dL (14.0-18.0); MCH 31.8 pg (26.0-34.0); MCV 96.3 fL (80.0-100.0); RBC 2.36 mil/uL (4.50-6.00); WBC 6.9 thou/uL (4.0-11.0)
[2021-09-15 07:01] VITALS: BP 168/55
--- NOTE | 2021-09-15 10:48 | NUR ---
DISCHARGE NOTE: TOMMY reviewed chart and spoke with nursing and attending physician. Pt is medically stable for discharge to [facility] today. TOMMY spoke with Virgie, in admissions, who states they are able to crop picker pt around 1330 today. TOMMY discussed with quality control lab tech. Pt is okay to start dialysis at the facility tomorrow. Pt's new dialysis schedule is TRS. Pt will not have dialysis today as ordered. Nephrology documented in progress note. TOMMY faxed progress note to Virgie for review. TOMMY updated pt's nurse and provided number for report. TOMMY spoke with pt's son, Osvaldo, via phone to provide update. Notified of discharge timeframe. Pt's son is aware and agreeable with plan. Pt's son states he is trying to get in touch with Ayse at [facility] to crop picker pt's belongings. TOMMY sent message to Jazlyn at [facility] to request follow up with the son. Nursing updated. Chart copy requested. No additional SW needs identified at this time. TOMMY is following to assist should needs arise.
[2021-09-15 11:38] VITALS: BP 124/70
[2021-09-15 12:43] VITALS: BP 124/70
--- NOTE | 2021-09-15 13:01 | NUR ---
DISCHARGE NOTE: CARE ASSUMED THIS AM, PT ALERT AND ORIENTED X3, FORGETFUL AT TIMES. ON ROOM AIR, LUNGS DIMINISHED. GOT PT UP IN THE AM TO THE CHAIR, UP WITH 2 ASSIST. WOUND CARE TREATMENT COMPLETED AND PCITURES TAKEN. ALL BELONGINGS PACKED AND SENT WITH PT. REPORT GIVEN TO SUMMER ROBINS AT [facility]. PT TAKEN DOWN VIS TRANSPORTATION.
== END 2021-09-15 13:10 | DRG 377 ==
LOC: ER 11:39 → EROBS 21:06 → 3W 21:06 → EROBS 09-07 01:37 → 3W 09-07 14:35
PROVIDERS: Emergency Medicine; Internal Medicine; Internal Medicine Nephrology; Nurse Practitioner; ADMIT Hospitalist; ATTEND Hospitalist
PROC: 5A1D70Z Performance of Urinary Filtration, Intermittent, Less than 6 Hours Per Day (ICD-10-PCS; 2021-09-06)
PROC: 0DB78ZX Excision of Stomach, Pylorus, Via Natural or Artificial Opening Endoscopic, Diagnostic (ICD-10-PCS; 2021-09-07)
PROC: 5A1D70Z Performance of Urinary Filtration, Intermittent, Less than 6 Hours Per Day (ICD-10-PCS; 2021-09-08)
PROC: 0DJD8ZZ Inspection of Lower Intestinal Tract, Via Natural or Artificial Opening Endoscopic (ICD-10-PCS; 2021-09-10)
PROC: 5A1D70Z Performance of Urinary Filtration, Intermittent, Less than 6 Hours Per Day (ICD-10-PCS; 2021-09-10)
PROC: 30233N1 Transfusion of Nonautologous Red Blood Cells into Peripheral Vein, Percutaneous Approach (ICD-10-PCS; principal; 2021-09-11)
PROC: B41D1ZZ Fluoroscopy of Aorta and Bilateral Lower Extremity Arteries using Low Osmolar Contrast (ICD-10-PCS; 2021-09-13)
PROC: B4181ZZ Fluoroscopy of Bilateral Renal Arteries using Low Osmolar Contrast (ICD-10-PCS; 2021-09-13)
PROC: 5A1D70Z Performance of Urinary Filtration, Intermittent, Less than 6 Hours Per Day (ICD-10-PCS; 2021-09-13)
DX: K29.71 Gastritis, unspecified, with bleeding (principal); N18.6 End stage renal disease; E43 Unspecified severe protein-calorie malnutrition; D62 Acute posthemorrhagic anemia; I12.0 Hypertensive chronic kidney disease with stage 5 chronic kidney disease or end stage renal disease; K29.81 Duodenitis with bleeding; Z68.29 Body mass index [BMI] 29.0-29.9, adult; Z20.822 Contact with and (suspected) exposure to COVID-19; Z91.013 Allergy to seafood; K64.8 Other hemorrhoids; R74.01 Elevation of levels of liver transaminase levels; D69.6 Thrombocytopenia, unspecified; E87.5 Hyperkalemia; I48.91 Unspecified atrial fibrillation; Z79.01 Long term (current) use of anticoagulants; I25.10 Atherosclerotic heart disease of native coronary artery without angina pectoris; Z95.1 Presence of aortocoronary bypass graft; E11.65 Type 2 diabetes mellitus with hyperglycemia; Z79.4 Long term (current) use of insulin; E11.22 Type 2 diabetes mellitus with diabetic chronic kidney disease; Z99.2 Dependence on renal dialysis; E11.51 Type 2 diabetes mellitus with diabetic peripheral angiopathy without gangrene; L98.491 Non-pressure chronic ulcer of skin of other sites limited to breakdown of skin; Z86.718 Personal history of other venous thrombosis and embolism; Z83.3 Family history of diabetes mellitus; Z82.49 Family history of ischemic heart disease and other diseases of the circulatory system; Z87.891 Personal history of nicotine dependence
CPT/HCPCS: 10879; 32100; 62110; 62900; 70005